=== PATIENT | male | born 1960 | race Caucasian/White ===

== ENCOUNTER → 2017-05-29 | Outpatient (CLI) | payer MEDICARE, OTHER | LOC: M.MRI 11:09 | DX: S43.402A Unspecified sprain of left shoulder joint, initial encounter (principal); M75.102 Unspecified rotator cuff tear or rupture of left shoulder, not specified as traumatic; M75.22 Bicipital tendinitis, left shoulder; M19.012 Primary osteoarthritis, left shoulder; X58.XXXA Exposure to other specified factors, initial encounter; Y93.89 Activity, other specified; Y92.89 Other specified places as the place of occurrence of the external cause; Y99.8 Other external cause status ==

== ENCOUNTER → 2019-02-23 | Outpatient (CLI) | payer MEDICARE | LOC: M.RAD 02-14 15:25 | DX: M25.572 Pain in left ankle and joints of left foot (principal); I65.21 Occlusion and stenosis of right carotid artery; H53.9 Unspecified visual disturbance ==

== ENCOUNTER → 2020-02-02 | Outpatient (CLI) | payer OTHER | LOC: M.MRI 10:59 | PROVIDERS: ATTEND Orthopaedic Surgery | DX: M75.102 Unspecified rotator cuff tear or rupture of left shoulder, not specified as traumatic (principal); M19.012 Primary osteoarthritis, left shoulder; M25.412 Effusion, left shoulder; M77.8 Other enthesopathies, not elsewhere classified ==